=== PATIENT | male | born 1950 | race Caucasian/White ===

== ENCOUNTER 2021-07-04 14:02 | Emergency (ER) | payer MEDICARE ==
[2021-07-04 14:57] VITALS: BP 157/96; PULSE 61; RESP 20; TEMP 98.7
--- NOTE | 2021-07-04 15:39 | ED ---
General Adult HPI - General Chief complaint: Upper Respiratory Infection Stated complaint: Covid+,wants antibody Time Seen by Provider: 07/04/21 15:22 Source: patient, RN notes reviewed Mode of arrival: ambulatory Limitations: no limitations - History of Present Illness Initial comments: 71-year-old male presents to the emergency department for monoclonal antibody therapy. Patient states he tested positive for Covid yesterday. Reports symptoms began 7 days ago with headache, fatigue and have progressed to cough and congestion. Patient also complains of body aches. States he spoke with his primary care doctor who recommended he receive the monoclonal antibody infusion. Patient denies fever, chills, shortness of breath, difficulty breathing, chest pain, abdominal pain, nausea, vomiting, or diarrhea. - Related Data Allergies Allergy/AdvReac Type Severity Reaction Status Date / Time No Known Allergies Allergy Verified 07/04/21 14:57 Review of Systems ROS Statement: Those systems with pertinent positive or pertinent negative responses have been documented in the HPI. ROS Other: All systems not noted in ROS Statement are negative. Past Medical History Past Medical History: No Reported History History of Any Multi-Drug Resistant Organisms: None Reported Past Surgical History: Tonsillectomy Past Psychological History: No Psychological Hx Reported Smoking Status: Current every day smoker Past Alcohol Use History: Occasional Past Drug Use History: None Reported General Exam Limitations: no limitations (Well-developed, well-nourished male in no acute distress. Initial temperature 98.7, pulse 61, respirations 20, blood pressure 157/96, pulse ox 96% on room air.) General appearance: alert, in no apparent distress Eye exam: Present: normal appearance, PERRL, EOMI. Absent: scleral icterus, conjunctival injection, periorbital swelling ENT exam: Present: normal exam, mucous membranes moist Neck exam: Present: normal inspection. Absent: tenderness, meningismus, lymphadenopathy Respiratory exam: Present: normal lung sounds bilaterally, other (Nonproductive Congested cough noted). Absent: respiratory distress, wheezes, rales, rhonchi, stridor Cardiovascular Exam: Present: regular rate, normal rhythm, normal heart sounds. Absent: systolic murmur, diastolic murmur, rubs, gallop, clicks GI/Abdominal exam: Present: soft, normal bowel sounds. Absent: distended, tenderness, guarding, rebound, rigid Neurological exam: Present: alert, oriented X3, CN II-XII intact Psychiatric exam: Present: normal affect, normal mood Skin exam: Present: warm, dry, intact, normal color. Absent: rash Course Vital Signs 07/04/21 07/04/21 14:53 16:58 Temperature 98.7 F Pulse Rate 61 Respiratory 20 20 Rate Blood Pressure 157/96 O2 Sat by Pulse 96 Oximetry Medical Decision Making - Medical Decision Making This is a 71-year-old male who presents to the emergency department requesting monoclonal antibody infusion after testing positive for Covid yesterday. Patient states symptoms began 7 days prior to that. Upon exam, patient is resting comfortably and in no distress. Patient does have a congested cough, but is not experiencing any difficulty breathing or shortness of breath. Room air saturation fluctuates between 95-98%. Patient is afebrile, tachycardic, nor tachypneic. Monoclonal antibody infusion information provided to patient, risks and benefits were reviewed and patient is agreeable and tolerated infusion without any adverse side effects. Patient verbalizes readiness for discharge. He will be instructed to follow-up with his primary care provider for recheck. Return parameters were discussed in detail. Patient verbalizes understanding and agrees with this plan. This patient's care was discussed with my attending . Disposition Clinical Impression: COVID-19 Disposition: HOME SELF-CARE Condition: Stable Instructions (If sedation given, give patient instructions): Coronavirus Disease 2019 (COVID-19) Additional Instructions: May not receive COVID-19 booster for the next 90 days. Take Tylenol or Motrin as needed for fever or body aches. Follow-up with your primary care provider for a recheck; call the office tomorrow morning. Return to the emergency department with any new, worsening, or concerning symptoms. Is patient prescribed a controlled substance at d/c from ED?: No Referrals: Ashish Del Valle DO [Primary Care Provider] - 1-2 days Time of Disposition: 18:42
[2021-07-04] MEDS ORDERED: CASIRIVIMAB/IMDEVIMAB (EUA) 1,200 MG in SODIUM CHLORIDE 0.9% 100 ML IVPB ONE (16:45)
[2021-07-04] MEDS ORDERED: SODIUM CHLORIDE 0.9% 50 ML IVPB ONE (16:45)
== END 2021-07-04 18:48 | disposition home or self-care (01) ==
LOC: EC 14:02
DX: U07.1 COVID-19 (principal); F17.200 Nicotine dependence, unspecified, uncomplicated
CPT/HCPCS: 99283; 96374; Q0243